=== PATIENT | male | born 1940 | race Caucasian/White ===

== ENCOUNTER 2017-03-01 18:50 | Emergency (ER) | payer MEDICARE ==
[~2017-03-01] VITALS: Ht 180.3 cm; Wt 111.4 kg
[~2017-03-01 18:50] MED LIST: CIALIS2.5 MG PO; COLESTID 1GM1 G PO; CORDARONE200 MG/TAB PO; COREG 25MG25 MG/TAB PO; DIABETA 5MG5 MG/TAB PO; ELIQUIS 5MG PO; FISH OIL 1000MG1 CAP PO; HCTZ 25MG TAB25 MG PO; KLOR-CON 1010 MEQ PO; LANOXIN 0.25M0.25 MG PO; LASIX 20MG TABL20 MG PO; LOPID 600M600 MG/TAB PO; MULTIPLE VITAMI1 CAP PO; NIACIN500 M4 PO; NORCO 325 MG-51 TAB PO; NORVASC 10MG10 MG PO; NORVASC 5MG5 MG/TAB PO; PACERONE400 MG PO; PHARMASSURE SA160 MG PO; PROSCAR 5MG5 MG PO; TENORMIN 5050 MG/TAB PO; TIMOLOL MALEATE5 M1 OU; TRAVATAN Z 5 ML5 ML OU; TYLENOL 325MG325 MG PO; VIAGRA100 M1 PO; VITAMIN B50 B-C1 TAB PO; ZESTRIL 20MG TA20 MG PO; ZESTRIL40 MG PO; ZITHROMAX 250M250 MG PO
[2017-03-01 18:52] VITALS: TEMP 98.1
[2017-03-01 19:26] LABS: BASO % 0.5 % (0.0-2.0); EOS # 0.2 (0.0-0.7); EOS % 2.8 % (0-4.0); GRAN % 51.1 % (42.2-75.2); HEMATOCRIT 44.3 % (42.0-52.0); HEMOGLOBIN 14.7 g/dl (13.5-18.0); LYMPH % 34.8 % (20.0-51.0); MEAN CELL VOLUME 97 fl (80.0-100.0); MEAN CORPUSCULAR HEMOGLOBIN 32 pg (27.0-31.0); MEAN CORPUSCULAR HGB CONC 33 g/dl (33.0-37.0); MEAN PLATELET VOLUME 10.3 fl (7.4-10.4); MONO # 0.6 (0.1-0.6); MONO % 10.5 % (1.7-9.3); PLATELET COUNT 208 K/mm3 (130-400); RED BLOOD COUNT 4.59 M/mm3 (4.20-5.60); REDCELL DISTRIBUTION WIDTH-CV 13.3 % (11.5-14.5); WHITE BLOOD COUNT 5.8 K/mm3 (4.8-10.8)
[2017-03-01 19:35] LABS: ADJUSTED CALCIUM 9.5 mg/dL (8.4-10.2); ALANINE AMINOTRANSFERASE 22 U/L (21-72); ALBUMIN 4.4 gm/dL (3.5-5.0); ALKALINE PHOSPHATASE 89 U/L (50-136); ANION GAP 12 mmol/L (7-16); BILIRUBIN,TOTAL 0.6 mg/dL (0.0-1.0); BLOOD UREA NITROGEN 22 mg/dL (9-20); CALCIUM 9.8 mg/dL (8.4-10.2); CARBON DIOXIDE 29 mmol/L (22-30); CHLORIDE 103 mmol/L (98-107); CREATININE, serum 1.03 mg/dL (0.66-1.25); GLUCOSE 126 mg/dL (74-106); POTASSIUM 3.9 mmol/L (3.4-5.0); SODIUM 144 mmol/L (137-145); TOTAL PROTEIN 7.3 gm/dL (6.4-8.2)
[2017-03-01 20:13] LABS: TROPONIN-I < 0.012 ng/mL (0.000-0.034)
[2017-03-01 20:26] VITALS: BP 170/100; PULSE 70
== END 2017-03-01 20:27 | disposition home or self-care (01) ==
LOC: COL.ER 18:50
PROVIDERS: Emergency Medicine
DX: Z45.018 Encounter for adjustment and management of other part of cardiac pacemaker (principal); I48.91 Unspecified atrial fibrillation; I10 Essential (primary) hypertension; Z87.891 Personal history of nicotine dependence; Z79.01 Long term (current) use of anticoagulants

== ENCOUNTER 2018-12-17 16:10 | Inpatient (IN) | payer MEDICARE ==
[~2018-12-17] VITALS: Ht 180.3 cm; Wt 113.6 kg
[2018-12-17] MEDS ORDERED: NORVASC 10MG10 MG PO (16:38)
[2018-12-17 16:46] LABS: BASO # 0.1 (0.0-0.2); BASO % 0.3 % (0.0-2.0); EOS # 0.1 (0.0-0.7); EOS % 0.6 % (0-4.0); GRAN % 74.6 % (42.2-75.2); HEMATOCRIT 40.1 % (42.0-52.0); HEMOGLOBIN 13.4 g/dl (13.5-18.0); LYMPH # 2.4 (1.2-3.4); LYMPH % 13.9 % (20.0-51.0); MEAN CELL VOLUME 96 fl (80.0-100.0); MEAN CORPUSCULAR HEMOGLOBIN 32 pg (27.0-31.0); MEAN CORPUSCULAR HGB CONC 33 g/dl (33.0-37.0); MEAN PLATELET VOLUME 10.3 fl (7.4-10.4); MONO # 1.6 (0.1-0.6); MONO % 8.9 % (1.7-9.3); PLATELET COUNT 169 K/mm3 (130-400); RED BLOOD COUNT 4.19 M/mm3 (4.20-5.60); REDCELL DISTRIBUTION WIDTH-CV 14.6 % (11.5-14.5)
[2018-12-17 16:57] LABS: ALANINE AMINOTRANSFERASE 29 U/L (21-72); ALBUMIN 3.9 gm/dL (3.5-5.0); ALKALINE PHOSPHATASE 105 U/L (50-136); ANION GAP 10 mmol/L (7-16); AST,SGOT 34 U/L (15-37); BILIRUBIN,TOTAL 0.5 mg/dL (0.0-1.0); BLOOD UREA NITROGEN 17 mg/dL (9-20); CALCIUM 9.5 mg/dL (8.4-10.2); CARBON DIOXIDE 26 mmol/L (22-30); CHLORIDE 100 mmol/L (98-107); CREATININE, serum 0.66 mg/dL (0.66-1.25); GLUCOSE 106 mg/dL (74-106); POTASSIUM 4.2 mmol/L (3.4-5.0); SODIUM 135 mmol/L (137-145); TOTAL PROTEIN 7.5 gm/dL (6.4-8.2)
[2018-12-17 17:07] LABS: TROPONIN-I < 0.012 ng/mL (0.000-0.035)
[2018-12-17] MEDS ORDERED: FLOMAX 0.40.4 MG/CAP PO (17:31)
[2018-12-17 17:41] LABS: COLLECTION METHOD CLEAN CATCH
[2018-12-17 18:08] LABS: MUCOUS Present /lpf; PH 5 (5-8); URINE APPEARANCE Hazy; URINE BACTERIA None Seen /hpf; URINE BILIRUBIN Negative (NEGATIVE); URINE BLOOD Negative (NEGATIVE); URINE COLOR Yellow; URINE GLUCOSE Negative (NEGATIVE); URINE KETONE Negative (NEGATIVE); URINE LEUKOCYTE ESTERASE 2+ (NEGATIVE); URINE NITRATE Negative (NEGATIVE); URINE PROTEIN(semi-quant) 2+ (NEGATIVE); URINE RBC 20-50 /hpf; URINE UROBILINOGEN Negative (NEGATIVE)
[2018-12-17] MEDS ORDERED: CORDARONE200 MG/TAB PO (19:49)
[2018-12-17] MEDS ORDERED: PRINIVIL40 MG PO (19:52)
[2018-12-17] MEDS ORDERED: BACTRIM 400 MG-1 TAB PO (19:53)
[2018-12-17] MEDS ORDERED: LASIX 20MG TABL20 MG PO (19:58)
[2018-12-17 20:14] LABS: INR 1.7 (0.8-3.0); PROTHROMBIN TIME 19.2 SECONDS (9.7-12.8)
[2018-12-17 20:28] VITALS: BP 148/81; PULSE 77; TEMP 98.3
--- NOTE | 2018-12-17 22:00 | NUR ---
Admitted from ER with SOB, weakness. VSS, pt with productive cough, white sputum- will collect a sputum as ordered and urine specimens as ordered- on droplet precautions for Resp virus panel pending- o2 sats 94 % on RA-- sitting up in chair, states he feels better sitting up
[2018-12-18 00:04] VITALS: BP 137/70; PULSE 71; TEMP 99
[2018-12-18 03:09] VITALS: BP 122/66; PULSE 74; TEMP 99.2
--- NOTE | 2018-12-18 05:55 | NUR ---
No requests- states is feeling a little better this morning,,no stools throughout the night. Sitting up in recliner to sleep.
[2018-12-18 05:59] LABS: HEMOGLOBIN 12.2 g/dl (13.5-18.0); MEAN CELL VOLUME 96 fl (80.0-100.0); MEAN CORPUSCULAR HEMOGLOBIN 32 pg (27.0-31.0); MEAN CORPUSCULAR HGB CONC 33 g/dl (33.0-37.0); MEAN PLATELET VOLUME 10.1 fl (7.4-10.4); PLATELET COUNT 142 K/mm3 (130-400); RED BLOOD COUNT 3.83 M/mm3 (4.20-5.60); REDCELL DISTRIBUTION WIDTH-CV 14.6 % (11.5-14.5)
[2018-12-18 06:03] LABS: HEMATOCRIT 36.7 % (42.0-52.0)
[2018-12-18 06:15] LABS: ALBUMIN 3.3 gm/dL (3.5-5.0); BILIRUBIN,TOTAL 0.4 mg/dL (0.0-1.0); CALCIUM 8.8 mg/dL (8.4-10.2); CREATININE, serum 0.61 mg/dL (0.66-1.25); POTASSIUM 3.9 mmol/L (3.4-5.0); TOTAL PROTEIN 6.6 gm/dL (6.4-8.2)
[2018-12-18 06:16] LABS: BAND 8 % (0-10); EOSINOPHIL 3 % (0-4); LYMPHOCYTE 35 % (20.0-51.0); NEUTROPHILS 43 % (42.0-75.2); NUCLEATED RED BLOOD CELL 1 (0-6)
[2018-12-18 06:17] LABS: PLATELET ESTIMATE DECREASED (NORMAL)
[2018-12-18 07:32] VITALS: BP 141/75; PULSE 74; TEMP 98.7
--- NOTE | 2018-12-18 09:59 | NUR ---
BRIGETTE and BRIGETTE student met with the patient and patient's life partner, Carlos, to discuss discharge plan. The patient lives in [place] with his life partner. He reports independence with ADLs and does not use any DME. The patient goes to the outpatient clinic on [address], but was interested in being set up with a PCP is [place]. BRIGETTE discussed the [facility]. The patient stated he would like to be set up with Dr. Jonathan Monahan. BRIGETTE informed the patient's nurse practitioner. The patient receives his medications at the NH in [place]. He reports no difficulties obtaining his meds. The patient does not have advanced directives in EMR, but he states that he does have them completed. The patient plans to return home with his life partner upon discharge. No additional needs at this time.
[2018-12-18 10:51] VITALS: BP 115/65; PULSE 73; TEMP 99
--- NOTE | 2018-12-18 11:00 | NUR ---
Pt coughing alot this am with minimal white sputum produced. Pt alert and oriented and given PRN Tylenol for headache from coughing. Pt has spouse at bedside. Pt independent in the room and has call light in reach. Pt denies SOB and cardiology consulted this am.
[2018-12-18 16:04] VITALS: BP 124/64; PULSE 49; TEMP 97.7
[2018-12-18 19:14] VITALS: BP 114/66; PULSE 72; TEMP 98.2
--- NOTE | 2018-12-18 19:40 | NUR ---
Pt resting in bed with at bedside. Pt alert and oriented and rates pain in head from coughing at 1/10. Pt has Nitro paste on right chest. Pt independent in room and denies SOB at rest. Pt given diuretics today to manage CHF. Pt has call light in reach and denies needs. Pt appetite has been improved this am.
--- NOTE | 2018-12-18 21:59 | NUR ---
Completed assessment and medication administration with PT; Tolerated well without complaints. PT A&Ox3, BS active x4, IND AMB within room; PT has complaints of mild headache, administered PRN Tylenol 650mg as ordered with effective results verbalized; PT denied further needs at time of exit; call light placed within reach; Will continue to monitor. CDA
[2018-12-19 00:59] VITALS: BP 129/54; PULSE 76; TEMP 98.3
--- NOTE | 2018-12-19 01:51 | NUR ---
PT tolerating ABX and RT treatments well; No further complaints of pain or discomfort; PT able to verbally communicate concerns; Pending further medication and ABX therapy. No acute discomfort, pain, or concerns at time of exit; call light placed within reach; will continue to monitor; CDA
[2018-12-19 05:00] VITALS: BP 133/56; PULSE 56; TEMP 98.6
--- NOTE | 2018-12-19 07:10 | NUR ---
No significant changes; Report given to MIRTHA Alba. CDA
[2018-12-19 07:53] LABS: BASO % 0.3 % (0.0-2.0); EOS # 0.3 (0.0-0.7); GRAN # 9.5 (1.4-6.5); GRAN % 71.2 % (42.2-75.2); HEMATOCRIT 39.3 % (42.0-52.0); HEMOGLOBIN 13.3 g/dl (13.5-18.0); LYMPH # 2.1 (1.2-3.4); LYMPH % 15.6 % (20.0-51.0); MEAN CELL VOLUME 94 fl (80.0-100.0); MEAN CORPUSCULAR HEMOGLOBIN 32 pg (27.0-31.0); MEAN CORPUSCULAR HGB CONC 34 g/dl (33.0-37.0); MEAN PLATELET VOLUME 10.3 fl (7.4-10.4); MONO # 1.3 (0.1-0.6); MONO % 9.6 % (1.7-9.3); PLATELET COUNT 175 K/mm3 (130-400); RED BLOOD COUNT 4.18 M/mm3 (4.20-5.60); REDCELL DISTRIBUTION WIDTH-CV 14.1 % (11.5-14.5)
[2018-12-19 08:02] LABS: ALBUMIN 3.6 gm/dL (3.5-5.0); BILIRUBIN,TOTAL 0.5 mg/dL (0.0-1.0); CALCIUM 9.2 mg/dL (8.4-10.2); CREATININE, serum 0.86 mg/dL (0.66-1.25); POTASSIUM 3.9 mmol/L (3.4-5.0); TOTAL PROTEIN 7.2 gm/dL (6.4-8.2)
[2018-12-19 08:21] VITALS: BP 120/44; PULSE 76; TEMP 98.3
--- NOTE | 2018-12-19 09:28 | NUR ---
Pt assessment complete. Pt is sitting on side of bed, he is A/O x3. His breathing is currently even and unlabored on RA. Occasional productive cough present. Pt reports his breathing has improved, SOB improved. He currently reports a headache, PRN Tylenol administered. Pt reports having no diarrhea, no stools today. Denies further needs, call light within reach.
[2018-12-19 11:32] VITALS: BP 102/53; PULSE 44; TEMP 98.2
[2018-12-19 16:00] VITALS: BP 95/56; PULSE 70; TEMP 98.2
--- NOTE | 2018-12-19 18:41 | NUR ---
Pt urinated 90cc pt bladder scanned, 327ml in bladder. Jenny notified, order to place ascencio if ok with patient. Pt had some low bp, symptomatic. New orders placed. Pt aware of POC. Denies needs at this time. Call light within reach.
[2018-12-19 19:20] VITALS: BP 137/60; PULSE 42; TEMP 98
--- NOTE | 2018-12-19 20:09 | NUR ---
Pt sitting in recliner watching TV, family in room with Pt, very talkative and answers appropriately. Shift assessments complete, left Pt questions answered, call light in reach, bed in lowest position.
[2018-12-20] VITALS (7 sets, daily range): BP systolic 109–144; BP diastolic 58–81; PULSE 42–77; TEMP 97.5–98.5
--- NOTE | 2018-12-20 05:17 | NUR ---
Pt slept some of the night, family stayed in room with Pt all night, he has not had C/O pain during the shift, Denson was attempted and was not able to get it inserted.
[2018-12-20 08:46] LABS: BASO % 0.2 % (0.0-2.0); EOS # 0.3 (0.0-0.7); GRAN # 9.3 (1.4-6.5); GRAN % 69.3 % (42.2-75.2); HEMATOCRIT 37.5 % (42.0-52.0); HEMOGLOBIN 12.8 g/dl (13.5-18.0); LYMPH # 2.3 (1.2-3.4); MEAN CELL VOLUME 94 fl (80.0-100.0); MEAN CORPUSCULAR HEMOGLOBIN 32 pg (27.0-31.0); MEAN CORPUSCULAR HGB CONC 34 g/dl (33.0-37.0); MEAN PLATELET VOLUME 10.3 fl (7.4-10.4); MONO # 1.4 (0.1-0.6); MONO % 10.2 % (1.7-9.3); PLATELET COUNT 207 K/mm3 (130-400); RED BLOOD COUNT 3.99 M/mm3 (4.20-5.60); REDCELL DISTRIBUTION WIDTH-CV 14.1 % (11.5-14.5)
[2018-12-20 08:59] LABS: ALBUMIN 3.5 gm/dL (3.5-5.0); BILIRUBIN,TOTAL 0.5 mg/dL (0.0-1.0); CALCIUM 9.3 mg/dL (8.4-10.2); CREATININE, serum 0.83 mg/dL (0.66-1.25); MAGNESIUM 1.9 mg/dL (1.6-2.3); POTASSIUM 3.8 mmol/L (3.4-5.0); TOTAL PROTEIN 6.9 gm/dL (6.4-8.2)
--- NOTE | 2018-12-20 09:26 | NUR ---
Pt assessment complete. Pt sitting up on the side of the bed, he is A/O x3. His breathing is even and unlabored on RA. Pt denies SOB at rest and with exertion, reports continued phlegm build up. Pt denies pain at this time. No N/V. Pt asking about WBC, information provided. POC discussed with patient who verbalizes understanding. Frequent reminders given to patient to use urinal or urinate in hat for accurate I&O's. Pt denies further needs. Call light within reach.
--- NOTE | 2018-12-20 18:32 | NUR ---
Pt had uneventful day. He denied any needs or concerns. Breathing improved. Good output today. VSS. Pt eating dinner with at this time. Call light within reach.
--- NOTE | 2018-12-20 20:16 | NUR ---
Pt sitting up watching TV, family in room with Pt, no C/O pain currently, shift assessments complete, left Pt call light in reach.
[2018-12-21 04:15] VITALS: BP 133/66; PULSE 79; TEMP 97.6
--- NOTE | 2018-12-21 05:09 | NUR ---
Pt has been up and down during the night, he has not slept well. Pt has no C/O pain during the shift. VS have remained stable with the exception of his pulse rate dropping at times to mid to low 40s.
[2018-12-21 06:01] LABS: BASO % 0.4 % (0.0-2.0); EOS # 0.3 (0.0-0.7); EOS % 2.8 % (0-4.0); GRAN # 7.1 (1.4-6.5); GRAN % 62.3 % (42.2-75.2); HEMOGLOBIN 12.8 g/dl (13.5-18.0); LYMPH # 2.5 (1.2-3.4); LYMPH % 21.8 % (20.0-51.0); MEAN CELL VOLUME 94 fl (80.0-100.0); MEAN CORPUSCULAR HEMOGLOBIN 32 pg (27.0-31.0); MEAN CORPUSCULAR HGB CONC 34 g/dl (33.0-37.0); MEAN PLATELET VOLUME 10.2 fl (7.4-10.4); MONO # 1.3 (0.1-0.6); MONO % 11.6 % (1.7-9.3); PLATELET COUNT 243 K/mm3 (130-400); RED BLOOD COUNT 4.03 M/mm3 (4.20-5.60)
[2018-12-21 06:25] LABS: CALCIUM 9.1 mg/dL (8.4-10.2); CREATININE, serum 0.82 mg/dL (0.66-1.25); MAGNESIUM 1.8 mg/dL (1.6-2.3); POTASSIUM 3.5 mmol/L (3.4-5.0)
[2018-12-21 07:13] VITALS: BP 131/78; PULSE 58; TEMP 98
--- NOTE | 2018-12-21 10:53 | NUR ---
Initial visit; Patient and his thanked Custom Car Builder for looking in on him and offering God's blessings.
[2018-12-21 11:09] VITALS: BP 115/60; PULSE 58; TEMP 98.2
--- NOTE | 2018-12-21 12:02 | NUR ---
Pt alert and oriented this am. Pt denies pain now but states occassional headache with coughing. Pt has been coughing up moderate amount white sputum. Pt denies SOB. Pt spouse at bedside. Pt bilateral lower extremities have edema noted. Pt voiding independently and keeping track of output. Pt continues on fluid restriction. Pt would like to go home today. Pt has call light in reach and denies needs.
[2018-12-21 16:02] VITALS: BP 133/59; PULSE 45; TEMP 97.9
--- NOTE | 2018-12-21 17:51 | NUR ---
Pt alert and stable this shift. Pt continues on IV abx as ordered. Pt denies pain at this time. Pt up to chair eating supper now. BS WNL no insulin required. Pt spouse at bedside. Pt denies SOB at rest. Pt has call light in reach and denies further needs.
[2018-12-21 19:35] VITALS: BP 114/54; PULSE 54; TEMP 98
--- NOTE | 2018-12-21 19:42 | NUR ---
Pt resting in bed, spouse in room, Pt in good spirits and talkative, shift assessments complete, left Pt call light in reach, bed in lowest position.
[2018-12-21 23:43] VITALS: BP 125/50; PULSE 52; TEMP 98.3
[2018-12-22 03:02] VITALS: BP 117/56; PULSE 68; TEMP 99
--- NOTE | 2018-12-22 05:01 | NUR ---
Pt slept well during the night, no C/O pain, Pt has been NPO since midnight foer a possible ARIADNA in the AM, VS have remained stable during the shift.
[2018-12-22 06:08] LABS: BASO % 0.3 % (0.0-2.0); EOS # 0.3 (0.0-0.7); GRAN # 8.6 (1.4-6.5); GRAN % 66.7 % (42.2-75.2); HEMATOCRIT 41.1 % (42.0-52.0); HEMOGLOBIN 13.5 g/dl (13.5-18.0); LYMPH # 2.4 (1.2-3.4); LYMPH % 18.8 % (20.0-51.0); MEAN CELL VOLUME 96 fl (80.0-100.0); MEAN CORPUSCULAR HEMOGLOBIN 32 pg (27.0-31.0); MEAN CORPUSCULAR HGB CONC 33 g/dl (33.0-37.0); MEAN PLATELET VOLUME 10.2 fl (7.4-10.4); MONO # 1.4 (0.1-0.6); MONO % 11.2 % (1.7-9.3); PLATELET COUNT 293 K/mm3 (130-400); RED BLOOD COUNT 4.28 M/mm3 (4.20-5.60); REDCELL DISTRIBUTION WIDTH-CV 14.3 % (11.5-14.5)
[2018-12-22 06:17] LABS: CALCIUM 9.5 mg/dL (8.4-10.2); CREATININE, serum 0.93 mg/dL (0.66-1.25); POTASSIUM 3.4 mmol/L (3.4-5.0)
[2018-12-22 07:57] VITALS: BP 117/52; PULSE 74; TEMP 98.8
--- NOTE | 2018-12-22 09:11 | NUR ---
Pt alert and oriented. Pt slept well last NOC with sleep med given per pt. Pt up in chair at bedside. Pt NPO for possible ARIADNA today. Pt BLE edema noted. Pt denies SOB at rest. Pt rates pain 2/10 d/t headache from coughing. Pt IV in left hand patent and no redness or infiltration noted. Pt has call light in reach. Pt am assessment completed and edu given. Pt denies further needs and at bedside. Spouse has to work today and leave by 1300. Spouse cannot milk pickup truck driver pt until 1800 if DC'd today.
[2018-12-22 11:13] VITALS: BP 103/51; PULSE 76; TEMP 99
--- NOTE | 2018-12-22 14:45 | NUR ---
Pt alert and oriented and stable this afternoon. Pt denies pain. Pt continues IV abx. Pt has been able to get some sleep this afternoon. Pt independent in room. Pt denies dizziness or SOB at rest. Pt has call light in reach and denies further needs.
[2018-12-22 15:43] VITALS: BP 108/73; PULSE 72; TEMP 98.1
[2018-12-22 19:21] VITALS: BP 121/74; PULSE 77; TEMP 98.4
--- NOTE | 2018-12-22 22:28 | NUR ---
Completed assessment and medication administration; PT tolerated all well without complaint; PT able to verbalize all well; PT denied pain or discomfort at time of assessment; 20G Lt hand IV in place; PT continues to be a daily wt, ACHS with SS insulin, and IND in room; ABX continues q4h as ordered. LCTA throughout with diminished bilateral bases. PT scheduled for potential D/C on 12/23/18; PT denies further needs at time of exit; call light placed within reach; Will continue to monitor. CDA
[2018-12-22 23:35] VITALS: BP 117/60; PULSE 69; TEMP 99
--- NOTE | 2018-12-23 01:50 | NUR ---
PT REFUSED TX AT THIS TIME
[2018-12-23 03:12] VITALS: BP 118/41; PULSE 61; TEMP 98.6
--- NOTE | 2018-12-23 04:15 | NUR ---
PT tolerating q4h IV ABX therapy and all medications as ordered without complaints; PT able to AMB to toilet, in room, and short distances throughout room; Continues Tele, pending daily weight; Lt hand INT flushing well; PT pending D/C home today 12/23/18; PT denied further needs at time of exit; Call light placed within reach; PT placed in a comfortable position in bed; Will continue to monitor. CDA
[2018-12-23 06:29] LABS: HEMATOCRIT 39.6 % (42.0-52.0); HEMOGLOBIN 13.1 g/dl (13.5-18.0); MEAN CELL VOLUME 97 fl (80.0-100.0); MEAN CORPUSCULAR HEMOGLOBIN 32 pg (27.0-31.0); MEAN CORPUSCULAR HGB CONC 33 g/dl (33.0-37.0); MEAN PLATELET VOLUME 10.3 fl (7.4-10.4); PLATELET COUNT 333 K/mm3 (130-400); RED BLOOD COUNT 4.09 M/mm3 (4.20-5.60); REDCELL DISTRIBUTION WIDTH-CV 14.3 % (11.5-14.5)
[2018-12-23 06:46] LABS: CALCIUM 9.2 mg/dL (8.4-10.2); CREATININE, serum 0.98 mg/dL (0.66-1.25); MAGNESIUM 1.8 mg/dL (1.6-2.3); POTASSIUM 3.2 mmol/L (3.4-5.0)
[2018-12-23 06:52] LABS: EOSINOPHIL 2 % (0-4); LYMPHOCYTE 23 % (20.0-51.0); NEUTROPHILS 70 % (42.0-75.2)
[2018-12-23 06:53] LABS: PLATELET ESTIMATE NORMAL (NORMAL)
--- NOTE | 2018-12-23 06:58 | NUR ---
Report given to MIRTHA Pineda. CDA
[2018-12-23 07:35] VITALS: BP 100/61; BP 106/67; PULSE 66; PULSE 80; TEMP 97.2; TEMP 98.2
--- NOTE | 2018-12-23 09:28 | NUR ---
The patient is to discharge back home with his today, 12/23. BRIGETTE presented and explained the IM form to the patient and patient's . The patient verbalized understanding, signed, and he was provided a copy. The patient was interested in being set up with Dr. Monahan at the [facility]. BRIGETTE informed the loading unit operator. No additional needs at this time.
[2018-12-23] MEDS ORDERED: AMOXICILLIN 50500 MG PO (10:09)
[2018-12-23] MEDS ORDERED: COREG 6.256.25 MG/TA PO (10:10)
[2018-12-23] MEDS ORDERED: LASIX 20MG TABL20 MG PO (10:20)
== END 2018-12-23 12:20 | disposition home or self-care (01) | DRG 871 ==
LOC: COL.ER 16:10 → MEDICAL 18:15
PROVIDERS: Emergency Medicine; Nurse Practitioner Family; Physician Assistant; ADMIT Internal Medicine
DX: A41.81 Sepsis due to Enterococcus (principal); I50.23 Acute on chronic systolic (congestive) heart failure; N39.0 Urinary tract infection, site not specified; N17.9 Acute kidney failure, unspecified; I42.0 Dilated cardiomyopathy; B95.2 Enterococcus as the cause of diseases classified elsewhere; I48.0 Paroxysmal atrial fibrillation; I11.0 Hypertensive heart disease with heart failure; E78.5 Hyperlipidemia, unspecified; Z95.810 Presence of automatic (implantable) cardiac defibrillator; E11.9 Type 2 diabetes mellitus without complications; Z87.891 Personal history of nicotine dependence; Z79.01 Long term (current) use of anticoagulants
CPT/HCPCS: 99222-AI; 99232-AI; 99239; A4216; J0290; J0692; J0696; J1815; J1940; J3370; J7030; J7040; J7050

== ENCOUNTER 2019-01-09 07:12 | Inpatient (IN) | payer MEDICARE ==
[~2019-01-09] VITALS: Ht 180.3 cm; Wt 114.6 kg
[~2019-01-09 07:12] MED LIST changes: +AMOXICILLIN 50500 MG PO; +BACTRIM 400 MG-1 TAB PO; +COREG 6.256.25 MG/TA PO; +FLOMAX 0.40.4 MG/CAP PO; +PRINIVIL40 MG PO
[2019-01-09 07:47] LABS: BASO % 0.2 % (0.0-2.0); EOS # 0.2 (0.0-0.7); EOS % 1.3 % (0-4.0); GRAN # 11.4 (1.4-6.5); GRAN % 89.6 % (42.2-75.2); HEMATOCRIT 42.9 % (42.0-52.0); HEMOGLOBIN 13.9 g/dl (13.5-18.0); LYMPH # 0.7 (1.2-3.4); LYMPH % 5.5 % (20.0-51.0); MEAN CELL VOLUME 97 fl (80.0-100.0); MEAN CORPUSCULAR HEMOGLOBIN 32 pg (27.0-31.0); MEAN CORPUSCULAR HGB CONC 32 g/dl (33.0-37.0); MEAN PLATELET VOLUME 10.4 fl (7.4-10.4); MONO # 0.4 (0.1-0.6); MONO % 3.1 % (1.7-9.3); PLATELET COUNT 184 K/mm3 (130-400); RED BLOOD COUNT 4.41 M/mm3 (4.20-5.60); REDCELL DISTRIBUTION WIDTH-CV 13.4 % (11.5-14.5)
[2019-01-09 07:55] LABS: INR 1.2 (0.8-3.0)
[2019-01-09 07:57] LABS: BILIRUBIN,TOTAL 0.4 mg/dL (0.0-1.0); CALCIUM 9.4 mg/dL (8.4-10.2); CREATININE, serum 0.79 mg/dL (0.66-1.25); POTASSIUM 4.4 mmol/L (3.4-5.0); TOTAL PROTEIN 7.5 gm/dL (6.4-8.2)
[2019-01-09] MEDS ORDERED: ELIQUIS 5MG PO (07:57)
[2019-01-09] MEDS ORDERED: COREG 6.256.25 MG/TA PO (07:58)
[2019-01-09] MEDS ORDERED: FLOMAX 0.40.4 MG/CAP PO (07:59)
[2019-01-09] MEDS ORDERED: LASIX 20MG TABL20 MG PO (08:00)
[2019-01-09 08:08] LABS: TROPONIN-I 0.016 ng/mL (0.000-0.035)
[2019-01-09 08:18] LABS: COLLECTION METHOD CLEAN CATCH
[2019-01-09 08:27] LABS: MUCOUS Present /lpf; PH 6 (5-8); SQUAMOUS EPITHELIAL 0-2 /hpf; URINE APPEARANCE Hazy; URINE BACTERIA Rare /hpf; URINE BILIRUBIN Negative (NEGATIVE); URINE BLOOD Negative (NEGATIVE); URINE COLOR Yellow; URINE GLUCOSE Negative (NEGATIVE); URINE KETONE Negative (NEGATIVE); URINE LEUKOCYTE ESTERASE 1+ (NEGATIVE); URINE NITRATE Negative (NEGATIVE); URINE PROTEIN(semi-quant) 2+ (NEGATIVE); URINE UROBILINOGEN Negative (NEGATIVE); URINE WBC >50 /hpf
[2019-01-09 09:29] LABS: TSH w REFLEX 0.015 uIU/mL (0.465-4.680)
[2019-01-09 11:25] VITALS: BP 116/57; PULSE 95; TEMP 99.3
[2019-01-09 11:26] VITALS: BP 117/65; PULSE 95; TEMP 99.3
--- NOTE | 2019-01-09 12:00 | NUR ---
Admission completed, alert/oriented, vital signs stable/ still has low grade temp, denies pain or discomfort and states he already feels better sence showing up to the ED, heart RRR/ hx of A.fib, distal pulses are palpalbe, lungs CTA/ diminished in lower lobes, O2 sats WNL on room air, WBC elevated and patient was started on Vanoc and Rocephin in ED, Blood cx drawn and pending, I have notified of his arrival to the surgical floor, present, denies other needs at this time
[2019-01-09 14:53] VITALS: BP 112/52; PULSE 88; TEMP 98.5
--- NOTE | 2019-01-09 19:01 | NUR ---
REPORT GIVEN TO MINERVA FOUNTAIN.
[2019-01-09 19:18] VITALS: BP 126/52; PULSE 80; TEMP 99.4
--- NOTE | 2019-01-09 20:00 | NUR ---
Patient resting in bed at this time, at bedside. Patient is alert and oriented, answers questions appropriately. Telemetry in place per order. VS WNL. Patient denies pain or nausea at this time, does c/o being cold. Brought additional blankets. Patient denies further needs at this time, call light wihtin reach.
[2019-01-09 23:26] VITALS: BP 116/63; PULSE 88; TEMP 98
[2019-01-10 03:20] VITALS: BP 110/60; PULSE 75; TEMP 98.9
[2019-01-10 07:35] VITALS: BP 114/62; PULSE 86; TEMP 98.4
--- NOTE | 2019-01-10 08:00 | NUR ---
PATIENT IS DROWSY AND RESTING IN BED THIS MORNING. PATIENT AROUSES EASILY TO NAME. PATIENT IS A&O. IRREGULAR HEART RHYTHM WITH REGULAR RATE NOTED, OTEHRWISE VSS. TELE IN PLACE. O2 AT 2L VIA NASAL CANNULA. BOWEL SOUNDS ACTIVE ALL FOUR QUADRANTS. PATIENT TOLERATING FOOD & LIQUIDS WITHOUT ANY COMPLAINTS OF N/V. POSITIVE PEDAL PULSES EQUAL BILATERALLY. 1+ PITTING-EDEMA TO BLE AND 2+ PITTING-EDEMA TO FEET BILATERALLY. RIGHT AC TO INT. BREAKFAST TRAY EATEN. CALL LIGHT WITHIN REACH. PATIENT DENIES ANY NEEDS AT THIS TIME.
[2019-01-10 08:09] LABS: BASO # 0.1 (0.0-0.2); BASO % 0.3 % (0.0-2.0); EOS # 0.1 (0.0-0.7); EOS % 0.7 % (0-4.0); GRAN # 15.7 (1.4-6.5); HEMATOCRIT 37.5 % (42.0-52.0); LYMPH # 1.4 (1.2-3.4); LYMPH % 7.6 % (20.0-51.0); MEAN CELL VOLUME 99 fl (80.0-100.0); MEAN CORPUSCULAR HEMOGLOBIN 32 pg (27.0-31.0); MEAN CORPUSCULAR HGB CONC 32 g/dl (33.0-37.0); MEAN PLATELET VOLUME 10.6 fl (7.4-10.4); MONO # 1.3 (0.1-0.6); MONO % 6.8 % (1.7-9.3); PLATELET COUNT 133 K/mm3 (130-400); RED BLOOD COUNT 3.78 M/mm3 (4.20-5.60); REDCELL DISTRIBUTION WIDTH-CV 13.9 % (11.5-14.5)
[2019-01-10 08:27] LABS: CALCIUM 8.8 mg/dL (8.4-10.2); CREATININE, serum 0.84 mg/dL (0.66-1.25)
--- NOTE | 2019-01-10 09:05 | NUR ---
PATIENT CALLED OUT REQUESTING MEDICATION FOR A HEADACHE. PATIENT GIVEN PRN DOSE OF ORAL TYLENOL. NO OTHER NEEDS AT THIS TIME.
--- NOTE | 2019-01-10 11:20 | NUR ---
CALLED AND NOTIFIED OF ID CONSULT FOR POSITIVE BLOOD CULTURES.
[2019-01-10 11:56] VITALS: BP 120/57; PULSE 74; TEMP 98.4
--- NOTE | 2019-01-10 13:10 | NUR ---
Patient lives at home in [place], [place] with his partner (Carlos) and plasn to return home upon discharge. Patient is moderately independent with daily living activities with assistance from Carlos as needed, he has no anticipated durable medical equipment needs at this time, his primary care physician and medical care primarly comes from the MD, his pharmacy is [facility] and he does have advance directives completed. Patient is retired from the [employer]. gate services supervisor will follow as needed.
--- NOTE | 2019-01-10 14:30 | NUR ---
PATIENT TOLERATING SMALL AMOUNTS OF FULL LIQUIDS WITHOUT COMPLAINTS OF N/V. NOTIFIED. PATIENT GIVEN THE OKAY TO DISCHARGE TO HOME PER .
--- NOTE | 2019-01-10 14:48 | NUR ---
PATIENT TAKEN TO CT VIA WHEELCHAIR BY RADIOLOGY FOR SCAN. WILL WAIT FOR RETURN TO ROOM 342.
--- NOTE | 2019-01-10 15:00 | NUR ---
PATIENT ARRIVED BACK TO ROOM [address] SCAN. PATIENT SETTELED INTO ROOM. NO NEEDS AT THIS TIME.
[2019-01-10 15:32] VITALS: BP 129/65; PULSE 81; TEMP 98.7
--- NOTE | 2019-01-10 16:01 | NUR ---
PATIENT GIVEN PRN DOSE OF ORAL TYLENOL FOR A HEADACHE RATED A 2/10 ON A 0-10 SCALE. PATIENT DENIES ANY OTHER NEEDS AT THIS TIME.
--- NOTE | 2019-01-10 18:08 | NUR ---
CALLED AND NOTIFIED OF SURGICAL CONSULT FOR CHOLEYCYSTITIS. PORB GIVEN FOR ELIQUIS HOLD FOR EVENING DOSE TONIGHT.
--- NOTE | 2019-01-10 19:03 | NUR ---
AFTERNOON UNEVENTFUL. REPORT GIVEN TO MIRTHA ZAVALA.
[2019-01-10 19:27] VITALS: BP 131/63; PULSE 79; TEMP 98.5
--- NOTE | 2019-01-10 20:16 | NUR ---
Pt resting in bed. at bedside. No distress noted. Pt denies pain. Lungs clear to auscultation. Respirations even and unlabored. BS+. 2+ pitting edema noted to BLE. Pt complaining of having to get up to use bathroom frequently due to lasix administration. Pt states he "doesn't want anymore of that Lasix". No other complaints. Will continue to monitor.
[2019-01-10 23:35] VITALS: BP 138/70; PULSE 93; TEMP 99.2
[2019-01-11 03:53] VITALS: BP 127/66; PULSE 78; TEMP 99.3
--- NOTE | 2019-01-11 05:19 | NUR ---
Pt up to sink. Just finished with self bed bath and PO care. No distress noted. Pt denies pain or needs. Pt slept throughout the night.
[2019-01-11 07:08] LABS: HEMATOCRIT 37.9 % (42.0-52.0); HEMOGLOBIN 11.9 g/dl (13.5-18.0); MEAN CELL VOLUME 99 fl (80.0-100.0); MEAN CORPUSCULAR HEMOGLOBIN 31 pg (27.0-31.0); MEAN CORPUSCULAR HGB CONC 31 g/dl (33.0-37.0); MEAN PLATELET VOLUME 11.5 fl (7.4-10.4); PLATELET COUNT 129 K/mm3 (130-400); RED BLOOD COUNT 3.84 M/mm3 (4.20-5.60); REDCELL DISTRIBUTION WIDTH-CV 13.7 % (11.5-14.5)
[2019-01-11 07:14] VITALS: BP 142/71; PULSE 77; TEMP 98
[2019-01-11 07:21] LABS: ALBUMIN 3.6 gm/dL (3.5-5.0); BILIRUBIN,TOTAL 0.3 mg/dL (0.0-1.0); CALCIUM 9.1 mg/dL (8.4-10.2); CREATININE, serum 0.68 mg/dL (0.66-1.25); TOTAL PROTEIN 7.1 gm/dL (6.4-8.2)
--- NOTE | 2019-01-11 11:14 | NUR ---
Patient alert and oriented, answers questions appropriately. See assessment. Abdomen soft, non tender, non distended. Bowel sounds hyperactive x4 quads. +Flatus. No c/o urinary frequency, burning or hesitancy. No other c/o at this time.
[2019-01-11 11:23] VITALS: BP 123/55; PULSE 51; TEMP 98.7
[2019-01-11 12:30] LABS: BAND 2 % (0-10); LYMPHOCYTE 15 % (20.0-51.0); NEUTROPHILS 76 % (42.0-75.2); PLATELET ESTIMATE DECREASED (NORMAL); TOXIC GRANULATION PRESENT
[2019-01-11 15:44] VITALS: BP 130/69; PULSE 71; TEMP 98.1
[2019-01-11 20:44] VITALS: BP 140/67; PULSE 71; TEMP 98.6
--- NOTE | 2019-01-11 21:20 | NUR ---
Patient sitting up in chair at bedside. Is alert and oriented x4. Has oxygen on at 1L/nc. Lungs diminished bilaterally. SL to right AC, connected IV antibiotic, infusing without redness or swelling. Reports voiding without burning or pain. Has bilateral lower leg swelling. Will be NPO after midnight, patient is aware.
[2019-01-12] VITALS (13 sets, daily range): BP systolic 120–161; BP diastolic 54–87; PULSE 64–84; TEMP 98–99.5
--- NOTE | 2019-01-12 00:27 | NUR ---
Received report from MIRTHA Augustin.
--- NOTE | 2019-01-12 05:54 | NUR ---
Patient has rested intermittently through the night. VSS, currently on 1 liter of supplemental O2 via nasal cannula. Tele maintained, paced rhythmn. Tylenol given last night for c/o a headache. Remains NPO for gallbladder ultrasound this morning. has been at bedside. Patient is up with standby assist with a steady gait. Denies any concerns or needs. Bed remains in a low position with call light in reach.
[2019-01-12 06:03] LABS: BASO % 0.4 % (0.0-2.0); EOS # 0.2 (0.0-0.7); EOS % 2.1 % (0-4.0); GRAN # 6.6 (1.4-6.5); HEMOGLOBIN 11.6 g/dl (13.5-18.0); LYMPH % 19.4 % (20.0-51.0); MEAN CELL VOLUME 99 fl (80.0-100.0); MEAN CORPUSCULAR HEMOGLOBIN 31 pg (27.0-31.0); MEAN CORPUSCULAR HGB CONC 32 g/dl (33.0-37.0); MEAN PLATELET VOLUME 10.9 fl (7.4-10.4); MONO # 1.3 (0.1-0.6); MONO % 12.7 % (1.7-9.3); PLATELET COUNT 108 K/mm3 (130-400); REDCELL DISTRIBUTION WIDTH-CV 13.3 % (11.5-14.5)
[2019-01-12 06:08] LABS: HEMATOCRIT 36.7 % (42.0-52.0)
[2019-01-12 06:19] LABS: CALCIUM 9.3 mg/dL (8.4-10.2); CREATININE, serum 0.67 mg/dL (0.66-1.25); POTASSIUM 3.9 mmol/L (3.4-5.0)
--- NOTE | 2019-01-12 07:30 | NUR ---
Reported on to primary nurse MIRTHA Vann. Assessment complete. VSS. Bilateral lower extremity edema +2 pitting. Abdomen round and soft. Bowel sounds hypoactive all four quadrants. PT NPO after midnight. Reports bowel movement "recently." No pain on palpation. INT in R antecubital. PT reports no pain. No redness or swelling around site. PT is pleasant and interactive. Left with bed in lowest position and call light in reach.
--- NOTE | 2019-01-12 07:42 | NUR ---
Patient sitting up at edge of bed. He is anticipating ultrasound this am. His significant other at bedside. Student nurse working with patient. Patient plesant this am. Denies pain. Will monitor.
--- NOTE | 2019-01-12 08:30 | NUR ---
Check on PT. Reports generalized pain at 11/26. Denies pain med at this time. Left resting comfortably with call light in reach.
--- NOTE | 2019-01-12 09:00 | NUR ---
Ultrasound done in room. Partner at bedside.
--- NOTE | 2019-01-12 09:23 | NUR ---
Hospitalist team rounded. Iv antibioitcs per orders. Will monitor
--- NOTE | 2019-01-12 10:31 | NUR ---
notifed of of ultrasound results. He will see patient over lunch. Will
--- NOTE | 2019-01-12 11:20 | NUR ---
Pt found sitting on side of bed. Complains of having to go to the bathroom repeatedly. Pt educated on effects of med causing frequent urination. VSS. Pt left resting comfortably. Call light in reach. Reported off to primary nurse MIRTHA Vann.
--- NOTE | 2019-01-12 13:07 | NUR ---
Dr. Poole rounded. Orders obtained. Consent obtained, patient denies questions or concerns. Iv antibioitcs per , blood cultures obtained. Patient has been up and down to the bathroom frequently, lasix working, he has also had a BM. His significant other remains attentive at bedside. He remains NPO for procedure. Denies nausea & pain. Will monitor.
--- NOTE | 2019-01-12 13:45 | NUR ---
Patient to the OR with Michel barriga. Patient dentures ^ glasses removed. His ring off. Patient voided prior to OR. Pre ops per orders & NS to gravity.
--- NOTE | 2019-01-12 15:45 | NUR ---
Called to PACU at this time to assist pt. It is suspected he will need BIPAP post-surgery. BIPAP previously setup at bedside and ready for pt. PT did not need BIPAP at this time. Monitored for approx. 15-20.
--- NOTE | 2019-01-12 19:28 | NUR ---
Pt resting with HOB elevated. at bedside. No distress noted. Pt denies pain at this time. Lap sites x4 on abdomen clean dry and intact with bandaids. Abdomen distended. BS +. SCDs in place. 1+ edema noted to BLE. Will continue to monitor.
--- NOTE | 2019-01-12 19:34 | NUR ---
Patient more oriented & in better spirits now. Immediately post op patient was disoriented & aggitated. His remains attentive at bedside. Lap site x4 bandaids intact. Vss on room air. He has tolerated liquids, no nausea. Not requiring pain meds at this time. Iv antibioitcs per orders. bedside report to roberto delong
[2019-01-13 04:45] VITALS: BP 139/79; PULSE 75; TEMP 98.7
--- NOTE | 2019-01-13 06:37 | NUR ---
Pt resting. at bedside. Pt c/o abdominal pain this AM. Abdomen distended, but pt reports passing gas. BS+. Pt slept throughout the night.
--- NOTE | 2019-01-13 07:00 | NUR ---
Reported on to primary nurse MIRTHA Bell. Checked on pt. Up in chair awaiting breakfast. INT in R antecubital. No redness or swelling. No reported pain. Tele leads in place. Call light left in reach.
[2019-01-13 07:21] LABS: BASO % 0.4 % (0.0-2.0); EOS # 0.2 (0.0-0.7); EOS % 1.5 % (0-4.0); GRAN # 6.7 (1.4-6.5); GRAN % 67.6 % (42.2-75.2); HEMATOCRIT 37.3 % (42.0-52.0); LYMPH # 1.7 (1.2-3.4); LYMPH % 16.9 % (20.0-51.0); MEAN CELL VOLUME 96 fl (80.0-100.0); MEAN CORPUSCULAR HEMOGLOBIN 31 pg (27.0-31.0); MEAN CORPUSCULAR HGB CONC 32 g/dl (33.0-37.0); MEAN PLATELET VOLUME 11.3 fl (7.4-10.4); MONO # 1.3 (0.1-0.6); MONO % 12.9 % (1.7-9.3); PLATELET COUNT 130 K/mm3 (130-400); RED BLOOD COUNT 3.88 M/mm3 (4.20-5.60); REDCELL DISTRIBUTION WIDTH-CV 13.1 % (11.5-14.5)
[2019-01-13 07:34] LABS: ALBUMIN 3.5 gm/dL (3.5-5.0); BILIRUBIN,TOTAL 0.4 mg/dL (0.0-1.0); CALCIUM 9.1 mg/dL (8.4-10.2); CREATININE, serum 0.66 mg/dL (0.66-1.25); POTASSIUM 3.7 mmol/L (3.4-5.0); TOTAL PROTEIN 6.8 gm/dL (6.4-8.2)
[2019-01-13 08:00] VITALS: BP 136/68; PULSE 64; TEMP 98.3
--- NOTE | 2019-01-13 08:48 | NUR ---
Patient resting in bed, lying on his right side. He sat up in chair & tolearted breakfast well. His supportive at bedside. His abdomen soft, he reports passing flatus. Lap site x3 bandaids intact. New Iv started by Stephanie SHANNON to Chava. Old IV DC to RAC. Iv antibioitics as ordered. Patient has student nurse working with him this am. Overall he is in good spirits. pain managed with [place] per orders. Allen romero.
--- NOTE | 2019-01-13 09:00 | NUR ---
Assessment complete. VSS. INT in L hand. No redness or swelling. Pt reports no pain at site. Tele leads in place. Lap incisions x4 on abdomen CDI. No pain or tenderness on palpation. BLE edema is +1 pitting. Pt reports pain 0/10. Pleasant and social demeanor. Pt left resting in bed. Call light in reach.
--- NOTE | 2019-01-13 10:15 | NUR ---
Check on pt. at beside. Both resting comfortably with eyes closed. Bed in lowest position. Call light in reach.
--- NOTE | 2019-01-13 10:20 | NUR ---
Initial visit; Patient thanked Master Control Supervisor for looking in on him and told her a joke. Patient and his were receptive to Master Control Supervisor offering God's blessings.
--- NOTE | 2019-01-13 10:25 | NUR ---
Patient resting in bed. up and down to the bathroom, independently. Really hoping to get home, wanting to discharge, he reports feeling great
[2019-01-13 11:00] VITALS: BP 135/77; PULSE 54; TEMP 98.5
--- NOTE | 2019-01-13 11:00 | NUR ---
VSS. Pt states no pain. In good spirits and motivated to go home. Left sitting on edge of bed. Call light in reach.
--- NOTE | 2019-01-13 11:29 | NUR ---
Reported off to primary nurse MIRTHA Bell.
--- NOTE | 2019-01-13 13:31 | NUR ---
Patient resting in bed.Hospitalst team & rounded. Plan of care reviewed. Continue with Iv antibioitcs per orders. He is tolerating diet. [place] Po manages pain well. Using the bathroom independently. His attentive at bedside.
[2019-01-13 15:40] VITALS: BP 143/84; PULSE 65; TEMP 98.8
--- NOTE | 2019-01-13 19:34 | NUR ---
Patient has done well today. Diet progressed. He denies nausea. Pain managed with with [place]. Iv antibioitcs per orders. He is hoping to get home tmrw after blood cultures finalize. Report to night nurse
[2019-01-13 19:59] VITALS: BP 150/73; PULSE 80; TEMP 99
--- NOTE | 2019-01-13 20:00 | NUR ---
PT IN BED WITH HOB AT 15 DEGREE ANGLE, BY SIDE IN RECLINER. PT ADVISES THAT THE NORCO GIVEN TO HIM EARLIER TOOK HIS PAIN AWAY AND HE IS AT A 0/10. PT HAD 4 LAP SITES, [place] SWOLLEN. PT HAS NO FURTHER NEEDS AT THIS TIME, CALL LIGHT WITHIN REACH.
[2019-01-13 23:52] VITALS: BP 138/54; PULSE 78; TEMP 99.2
--- NOTE | 2019-01-14 02:05 | NUR ---
PT has been sleeping/resting well in bed with HOB elevated to 45 degree angle. is still in room with PT. PT easily awakens and denies pain or discomfort at this time. No needs at this time, call light within reach.
[2019-01-14 03:25] VITALS: BP 144/74; PULSE 78; TEMP 98.8
[2019-01-15 08:00] VITALS: BP 147/65; PULSE 76
[2019-01-15 12:30] VITALS: BP 140/69; PULSE 72
[2019-01-15] MEDS ORDERED: AMOXICILLIN 50500 MG PO (14:16)
[2019-01-15 15:03] LABS: HEMATOCRIT 37.4 % (42.0-52.0); HEMOGLOBIN 12.2 g/dl (13.5-18.0); MEAN CELL VOLUME 95 fl (80.0-100.0); MEAN CORPUSCULAR HEMOGLOBIN 31 pg (27.0-31.0); MEAN CORPUSCULAR HGB CONC 33 g/dl (33.0-37.0); MEAN PLATELET VOLUME 10.8 fl (7.4-10.4); PLATELET COUNT 133 K/mm3 (130-400); RED BLOOD COUNT 3.92 M/mm3 (4.20-5.60)
[2019-01-15 15:05] LABS: EOSINOPHIL 3 % (0-4); LYMPHOCYTE 16 % (20.0-51.0); NEUTROPHILS 69 % (42.0-75.2); PLATELET ESTIMATE DECREASED (NORMAL)
--- NOTE | 2019-01-15 15:20 | NUR ---
Patient ready for discharge this afternoon. Hospitalist team rounded. Spoke with . Order obtained. Patient & his given all discharge teaching. We reviewed & stressed the importance of continuing & finishing antibioitc coarse-antibioitic for worm picker at [facility]. Patient given script for norco-we reviewed medication safety. Home med list discussed with last dose time given. Patient Int DC. Patient dressed. His has been attentive at bedside. Patient has spend alot of time in the bathroom, trying to have a Bm. He had prune juice and colace. Was able to have BM. Patient is aware of follow up appt. We reviewed incision care & signs & symtoms of infection. Patient and deny questions & concerns. Patient wheeled out with all belogings.
[2019-01-15 15:27] LABS: CALCIUM 8.9 mg/dL (8.4-10.2); CREATININE, serum 0.59 mg/dL (0.66-1.25); POTASSIUM 3.5 mmol/L (3.4-5.0)
[2019-01-15 20:21] LABS: CALCIUM 8.9 mg/dL (8.4-10.2); CREATININE, serum 0.59 mg/dL (0.66-1.25); POTASSIUM 3.5 mmol/L (3.4-5.0)
[2019-01-15 22:04] LABS: BASO % 0.2 % (0.0-2.0); EOS # 0.2 (0.0-0.7); GRAN # 8.7 (1.4-6.5); GRAN % 71.5 % (42.2-75.2); HEMATOCRIT 37.4 % (42.0-52.0); HEMOGLOBIN 12.2 g/dl (13.5-18.0); LYMPH # 1.5 (1.2-3.4); LYMPH % 12.2 % (20.0-51.0); MEAN CELL VOLUME 95 fl (80.0-100.0); MEAN CORPUSCULAR HEMOGLOBIN 31 pg (27.0-31.0); MEAN CORPUSCULAR HGB CONC 33 g/dl (33.0-37.0); MEAN PLATELET VOLUME 10.8 fl (7.4-10.4); MONO # 1.6 (0.1-0.6); MONO % 12.9 % (1.7-9.3); PLATELET COUNT 133 K/mm3 (130-400); RED BLOOD COUNT 3.92 M/mm3 (4.20-5.60)
== END 2019-01-15 15:20 | disposition home or self-care (01) | DRG 854 ==
LOC: COL.ER 07:12 → SURG 09:17
PROVIDERS: Emergency Medicine; Hospitalist; Nurse Practitioner Family; Physician Assistant; Surgery; ADMIT Hospitalist
PROC: 0FT44ZZ Resection of Gallbladder, Percutaneous Endoscopic Approach (ICD-10-PCS; principal; 2019-01-12 14:45)
DX: A41.81 Sepsis due to Enterococcus (principal); K80.10 Calculus of gallbladder with chronic cholecystitis without obstruction; I50.22 Chronic systolic (congestive) heart failure; I42.8 Other cardiomyopathies; E78.5 Hyperlipidemia, unspecified; I48.91 Unspecified atrial fibrillation; Z95.0 Presence of cardiac pacemaker; E11.9 Type 2 diabetes mellitus without complications; N40.0 Benign prostatic hyperplasia without lower urinary tract symptoms; R53.81 Other malaise; H40.9 Unspecified glaucoma; E05.90 Thyrotoxicosis, unspecified without thyrotoxic crisis or storm; M89.9 Disorder of bone, unspecified; I11.0 Hypertensive heart disease with heart failure; Z87.891 Personal history of nicotine dependence; Z88.8 Allergy status to other drugs, medicaments and biological substances
CPT/HCPCS: 99222-AI; 99232-AI; 99233-AI; 99239; A4216; J0290; J0696; J1650; J2405; J2765; J3010; J3370; J7030; J7040; J7050

== ENCOUNTER 2019-03-05 12:57 | Emergency (ER) | payer MEDICARE ==
[~2019-03-05] VITALS: Ht 180.3 cm; Wt 112.7 kg
[2019-03-05 13:03] VITALS: BP 143/76; TEMP 99.7
[2019-03-05 15:16] LABS: COLLECTION METHOD CLEAN CATCH
[2019-03-05 15:24] LABS: BASO % 0.3 % (0.0-2.0); EOS # 0.2 (0.0-0.7); EOS % 1.9 % (0-4.0); GRAN % 68.7 % (42.2-75.2); HEMATOCRIT 39.8 % (42.0-52.0); HEMOGLOBIN 12.9 g/dl (13.5-18.0); LYMPH % 16.7 % (20.0-51.0); MEAN CELL VOLUME 91 fl (80.0-100.0); MEAN CORPUSCULAR HEMOGLOBIN 30 pg (27.0-31.0); MEAN CORPUSCULAR HGB CONC 32 g/dl (33.0-37.0); MEAN PLATELET VOLUME 9.6 fl (7.4-10.4); MONO # 1.4 (0.1-0.6); MONO % 11.9 % (1.7-9.3); PLATELET COUNT 530 K/mm3 (130-400); RED BLOOD COUNT 4.38 M/mm3 (4.20-5.60); REDCELL DISTRIBUTION WIDTH-CV 13.4 % (11.5-14.5)
[2019-03-05 15:26] LABS: PH 6 (5-8); SQUAMOUS EPITHELIAL None Seen /hpf; URINE APPEARANCE Clear; URINE BACTERIA None Seen /hpf; URINE BILIRUBIN Negative (NEGATIVE); URINE BLOOD Negative (NEGATIVE); URINE COLOR Yellow; URINE GLUCOSE Negative (NEGATIVE); URINE KETONE Negative (NEGATIVE); URINE LEUKOCYTE ESTERASE 2+ (NEGATIVE); URINE NITRATE Negative (NEGATIVE); URINE PROTEIN(semi-quant) Negative (NEGATIVE); URINE RBC 0-2 /hpf; URINE UROBILINOGEN Negative (NEGATIVE)
[2019-03-05 15:34] LABS: BILIRUBIN,TOTAL 0.3 mg/dL (0.0-1.0); C-REACTIVE PROTEIN 6.2 mg/dL (0.0-0.9); CALCIUM 10.2 mg/dL (8.4-10.2); CREATININE, serum 0.64 (0.66-1.25); POTASSIUM 4.8 mmol/L (3.4-5.0); TOTAL PROTEIN 8.3 gm/dL (6.4-8.2)
[2019-03-05 15:54] LABS: ERYTHROCYTE SEDIMENTATION RATE > 140 mm/hr (0-30)
[2019-03-05] MEDS ORDERED: NORCO 325 MG-51 TAB PO (16:30)
[2019-03-05] MEDS ORDERED: OMNICEF 300MG300 MG PO (16:30)
[2019-03-05 17:42] VITALS: PULSE 70
== END 2019-03-05 17:17 | disposition home or self-care (01) ==
LOC: COL.ER 12:57
PROVIDERS: Emergency Medicine
DX: N39.0 Urinary tract infection, site not specified (principal); M54.5 Low back pain; I48.91 Unspecified atrial fibrillation; E11.9 Type 2 diabetes mellitus without complications; A41.9 Sepsis, unspecified organism; I10 Essential (primary) hypertension; N40.0 Benign prostatic hyperplasia without lower urinary tract symptoms; Z90.49 Acquired absence of other specified parts of digestive tract; Z95.0 Presence of cardiac pacemaker; Z79.01 Long term (current) use of anticoagulants
CPT/HCPCS: J0696

== ENCOUNTER 2019-03-06 10:30 | Emergency (ER) | payer MEDICARE ==
[~2019-03-06] VITALS: Ht 180.3 cm; Wt 114.0 kg
[~2019-03-06 10:30] MED LIST changes: +OMNICEF 300MG300 MG PO
[2019-03-06 11:00] LABS: BASO # 0.1 (0.0-0.2); BASO % 0.5 % (0.0-2.0); EOS # 0.3 (0.0-0.7); EOS % 2.3 % (0-4.0); GRAN # 7.8 (1.4-6.5); GRAN % 71.2 % (42.2-75.2); HEMATOCRIT 38.9 % (42.0-52.0); HEMOGLOBIN 12.4 g/dl (13.5-18.0); LYMPH # 1.5 (1.2-3.4); MEAN CELL VOLUME 92 fl (80.0-100.0); MEAN CORPUSCULAR HEMOGLOBIN 29 pg (27.0-31.0); MEAN CORPUSCULAR HGB CONC 32 g/dl (33.0-37.0); MEAN PLATELET VOLUME 9.7 fl (7.4-10.4); MONO # 1.3 (0.1-0.6); MONO % 11.4 % (1.7-9.3); PLATELET COUNT 514 K/mm3 (130-400); RED BLOOD COUNT 4.22 M/mm3 (4.20-5.60); REDCELL DISTRIBUTION WIDTH-CV 13.4 % (11.5-14.5)
[2019-03-06 11:16] LABS: ALANINE AMINOTRANSFERASE < 6 U/L (21-72); ALBUMIN 3.7 gm/dL (3.5-5.0); ALKALINE PHOSPHATASE 110 U/L (50-136); ANION GAP 10 mmol/L (7-16); AST,SGOT 26 U/L (15-37); BILIRUBIN,TOTAL 0.3 mg/dL (0.0-1.0); BLOOD UREA NITROGEN 16 mg/dL (9-20); CALCIUM 9.9 mg/dL (8.4-10.2); CARBON DIOXIDE 29 mmol/L (22-30); CHLORIDE 100 mmol/L (98-107); CREATININE, serum 0.68 (0.66-1.25); GLUCOSE 220 mg/dL (74-106); POTASSIUM 4.4 mmol/L (3.4-5.0); SODIUM 139 mmol/L (137-145); TOTAL PROTEIN 7.6 gm/dL (6.4-8.2)
[2019-03-06 17:30] VITALS: BP 130/71; PULSE 75; TEMP 98.1
== END 2019-03-06 17:37 | disposition short-term general hospital (02) ==
LOC: COL.ER 10:30
PROVIDERS: Family Medicine
DX: M54.5 Low back pain (principal); R78.81 Bacteremia; B95.2 Enterococcus as the cause of diseases classified elsewhere; E11.9 Type 2 diabetes mellitus without complications; I10 Essential (primary) hypertension; Z79.84 Long term (current) use of oral hypoglycemic drugs; Z95.0 Presence of cardiac pacemaker; Z86.19 Personal history of other infectious and parasitic diseases
CPT/HCPCS: J3370; J7030; J7040; Q9967

== ENCOUNTER → 2019-05-14 | Outpatient (CLI) | payer MEDICARE ==
[2019-05-14 11:31] LABS: BASO # 0.1 (0.0-0.2); BASO % 0.4 % (0.0-2.0); EOS # 0.1 (0.0-0.7); EOS % 1.1 % (0-4.0); GRAN # 9.6 (1.4-6.5); GRAN % 79.7 % (42.2-75.2); HEMATOCRIT 47.6 % (42.0-52.0); HEMOGLOBIN 15.2 g/dl (13.5-18.0); LYMPH # 1.2 (1.2-3.4); LYMPH % 9.5 % (20.0-51.0); MEAN CELL VOLUME 91 fl (80.0-100.0); MEAN CORPUSCULAR HEMOGLOBIN 29 pg (27.0-31.0); MEAN CORPUSCULAR HGB CONC 32 g/dl (33.0-37.0); MONO % 8.5 % (1.7-9.3); PLATELET COUNT 248 K/mm3 (130-400); RED BLOOD COUNT 5.23 M/mm3 (4.20-5.60); REDCELL DISTRIBUTION WIDTH-CV 14.6 % (11.5-14.5)
[2019-05-14 11:43] LABS: ALBUMIN 4.4 gm/dL (3.5-5.0); BILIRUBIN,TOTAL 0.3 mg/dL (0.0-1.0); C-REACTIVE PROTEIN 1.2 mg/dL (0.0-0.9); CALCIUM 9.6 mg/dL (8.4-10.2); CREATININE, serum 0.69 (0.66-1.25); POTASSIUM 4.8 mmol/L (3.4-5.0); TOTAL PROTEIN 8.8 gm/dL (6.4-8.2)
[2019-05-14 11:54] LABS: ERYTHROCYTE SEDIMENTATION RATE 54 mm/hr (0-30)
== END ==
LOC: COL.LAB 10:29
PROVIDERS: Nurse Practitioner
DX: B95.2 Enterococcus as the cause of diseases classified elsewhere (principal)

== ENCOUNTER 2019-05-15 15:17 | Inpatient (IN) | payer MEDICARE ==
[~2019-05-15] VITALS: Ht 180.3 cm; Wt 109.5 kg
[2019-05-15 18:00] LABS: BASO % 0.4 % (0.0-2.0); EOS # 0.1 (0.0-0.7); EOS % 1.3 % (0-4.0); HEMATOCRIT 43.6 % (42.0-52.0); HEMOGLOBIN 14.3 g/dl (13.5-18.0); LYMPH # 1.8 (1.2-3.4); LYMPH % 19.7 % (20.0-51.0); MEAN CELL VOLUME 89 fl (80.0-100.0); MEAN CORPUSCULAR HEMOGLOBIN 29 pg (27.0-31.0); MEAN CORPUSCULAR HGB CONC 33 g/dl (33.0-37.0); MONO # 1.2 (0.1-0.6); MONO % 12.8 % (1.7-9.3); PLATELET COUNT 272 K/mm3 (130-400); RED BLOOD COUNT 4.89 M/mm3 (4.20-5.60); REDCELL DISTRIBUTION WIDTH-CV 14.7 % (11.5-14.5)
[2019-05-15 18:02] LABS: INR 1.2 (0.8-3.0); PROTHROMBIN TIME 13.5 SECONDS (9.7-12.8)
[2019-05-15 18:05] LABS: ALANINE AMINOTRANSFERASE < 6 U/L (21-72); ALBUMIN 3.9 gm/dL (3.5-5.0); ALKALINE PHOSPHATASE 139 U/L (50-136); ANION GAP 12 mmol/L (7-16); AST,SGOT 22 U/L (15-37); BILIRUBIN,TOTAL 0.2 mg/dL (0.0-1.0); BLOOD UREA NITROGEN 19 mg/dL (9-20); CALCIUM 9.7 mg/dL (8.4-10.2); CARBON DIOXIDE 28 mmol/L (22-30); CHLORIDE 104 mmol/L (98-107); CREATININE, serum 0.69 (0.66-1.25); GLUCOSE 110 mg/dL (74-106); POTASSIUM 4.2 mmol/L (3.4-5.0); SODIUM 143 mmol/L (137-145); TOTAL PROTEIN 7.8 gm/dL (6.4-8.2)
[2019-05-15 18:07] VITALS: BP 148/85; PULSE 71; TEMP 99
--- NOTE | 2019-05-15 19:28 | NUR ---
Pt arrived this afternoon, no C/O pain nor significant issues found during admission assessment. Admission assessments complete.
--- NOTE | 2019-05-15 19:33 | NUR ---
Report given to MIRTHA Diallo.
--- NOTE | 2019-05-15 19:45 | NUR ---
Pt sitting at side of bed. at bedside. No distress noted. Pt denies pain. VSS. Assessment WNL. No needs noted. Will continue to monitor.
[2019-05-15 22:18] LABS: COLLECTION METHOD CLEAN CATCH
--- NOTE | 2019-05-15 22:20 | NUR ---
UA collected per MD order. Pt denies needs. Will continue to monitor.
[2019-05-15 22:24] LABS: PH 5 (5-8); URINE APPEARANCE Cloudy; URINE BACTERIA None Seen /hpf; URINE BILIRUBIN Negative (NEGATIVE); URINE BLOOD Negative (NEGATIVE); URINE COLOR Yellow; URINE GLUCOSE Negative (NEGATIVE); URINE KETONE Negative (NEGATIVE); URINE LEUKOCYTE ESTERASE 3+ (NEGATIVE); URINE NITRATE Negative (NEGATIVE); URINE PROTEIN(semi-quant) 1+ (NEGATIVE); URINE UROBILINOGEN Negative (NEGATIVE); URINE WBC >50 /hpf
[2019-05-15 22:36] VITALS: BP 143/70; PULSE 70; TEMP 98.1
[2019-05-15 23:24] VITALS: BP 142/78; PULSE 73; TEMP 98.3
[2019-05-16 03:29] VITALS: BP 143/76; PULSE 75; TEMP 98.4
--- NOTE | 2019-05-16 06:00 | NUR ---
Pt awake and alert. at bedside. Pt just bathed. Pt denies pain or needs. Dr. Woodard called for pt update. No orders received.
[2019-05-16 07:10] LABS: BASO % 0.5 % (0.0-2.0); EOS # 0.2 (0.0-0.7); EOS % 1.7 % (0-4.0); HEMATOCRIT 43.2 % (42.0-52.0); HEMOGLOBIN 13.7 g/dl (13.5-18.0); LYMPH # 2.3 (1.2-3.4); LYMPH % 26.4 % (20.0-51.0); MEAN CELL VOLUME 90 fl (80.0-100.0); MEAN CORPUSCULAR HEMOGLOBIN 29 pg (27.0-31.0); MEAN CORPUSCULAR HGB CONC 32 g/dl (33.0-37.0); MEAN PLATELET VOLUME 9.6 fl (7.4-10.4); MONO # 1.2 (0.1-0.6); MONO % 13.8 % (1.7-9.3); PLATELET COUNT 275 K/mm3 (130-400); RED BLOOD COUNT 4.78 M/mm3 (4.20-5.60); REDCELL DISTRIBUTION WIDTH-CV 14.6 % (11.5-14.5)
[2019-05-16 07:26] LABS: CALCIUM 9.5 mg/dL (8.4-10.2); CREATININE, serum 0.77 (0.66-1.25)
[2019-05-16 07:59] VITALS: BP 130/81; PULSE 69; TEMP 98
--- NOTE | 2019-05-16 10:03 | NUR ---
Pt sitting up in recliner eating breakfast, no C/O pain at this time, shift assessments complete, left Pt call light in reach.
[2019-05-16 11:38] VITALS: BP 147/82; PULSE 71; TEMP 97.5
[2019-05-16 14:43] VITALS: BP 147/82; PULSE 71; TEMP 97.5
--- NOTE | 2019-05-16 15:30 | NUR ---
[facility] packet given to Pt.
== END 2019-05-16 15:15 | disposition short-term general hospital (02) | DRG 871 ==
LOC: MEDICAL 15:17
PROVIDERS: ADMIT Hospitalist
DX: R78.81 Bacteremia (principal); J18.9 Pneumonia, unspecified organism; I50.22 Chronic systolic (congestive) heart failure; N39.0 Urinary tract infection, site not specified; I11.0 Hypertensive heart disease with heart failure; R53.81 Other malaise; I48.91 Unspecified atrial fibrillation; Z79.01 Long term (current) use of anticoagulants; E78.5 Hyperlipidemia, unspecified; H40.9 Unspecified glaucoma; N40.0 Benign prostatic hyperplasia without lower urinary tract symptoms; M89.9 Disorder of bone, unspecified; Z88.8 Allergy status to other drugs, medicaments and biological substances; Z87.891 Personal history of nicotine dependence; E11.9 Type 2 diabetes mellitus without complications; Z79.84 Long term (current) use of oral hypoglycemic drugs; E05.90 Thyrotoxicosis, unspecified without thyrotoxic crisis or storm
CPT/HCPCS: 99222-AI; 99239; J1815; J2020

== ENCOUNTER 2019-05-27 11:34 | Emergency (ER) | payer MEDICARE ==
[~2019-05-27] VITALS: Ht 180.3 cm; Wt 111.4 kg
[2019-05-27 11:39] VITALS: TEMP 97.8
[2019-05-27 12:24] LABS: BASO % 0.4 % (0.0-2.0); EOS # 0.2 (0.0-0.7); EOS % 2.4 % (0-4.0); GRAN # 5.9 (1.4-6.5); GRAN % 65.9 % (42.2-75.2); HEMATOCRIT 39.3 % (42.0-52.0); HEMOGLOBIN 12.8 g/dl (13.5-18.0); LYMPH # 1.6 (1.2-3.4); LYMPH % 17.5 % (20.0-51.0); MEAN CELL VOLUME 88 fl (80.0-100.0); MEAN CORPUSCULAR HEMOGLOBIN 29 pg (27.0-31.0); MEAN CORPUSCULAR HGB CONC 33 g/dl (33.0-37.0); MEAN PLATELET VOLUME 10.2 fl (7.4-10.4); MONO # 1.2 (0.1-0.6); MONO % 13.4 % (1.7-9.3); PLATELET COUNT 312 K/mm3 (130-400); RED BLOOD COUNT 4.47 M/mm3 (4.20-5.60)
[2019-05-27 12:37] LABS: ALBUMIN 3.6 gm/dL (3.5-5.0); BILIRUBIN,TOTAL 0.5 mg/dL (0.0-1.0); CALCIUM 9.4 mg/dL (8.4-10.2); CREATININE, serum 0.62 (0.66-1.25); TOTAL PROTEIN 7.3 gm/dL (6.4-8.2)
[2019-05-27 13:38] LABS: COLLECTION METHOD CLEAN CATCH
[2019-05-27 13:58] LABS: MUCOUS Present /lpf; PH 7 (5-8); SQUAMOUS EPITHELIAL None Seen /hpf; URINE APPEARANCE Hazy; URINE BACTERIA None Seen /hpf; URINE BILIRUBIN Negative (NEGATIVE); URINE BLOOD 3+ (NEGATIVE); URINE COLOR Yellow; URINE GLUCOSE Negative (NEGATIVE); URINE KETONE Negative (NEGATIVE); URINE LEUKOCYTE ESTERASE Trace (NEGATIVE); URINE NITRATE Negative (NEGATIVE); URINE PROTEIN(semi-quant) 1+ (NEGATIVE); URINE RBC >50 /hpf; URINE UROBILINOGEN Negative (NEGATIVE)
[2019-05-27 14:47] VITALS: BP 141/81; PULSE 74
== END 2019-05-27 14:50 | disposition home or self-care (01) ==
LOC: COL.ER 11:34
PROVIDERS: Family Medicine
DX: L03.90 Cellulitis, unspecified (principal); Z95.0 Presence of cardiac pacemaker
CPT/HCPCS: J7030

== ENCOUNTER → 2020-04-12 | Outpatient (CLI) | payer MEDICARE | LOC: COL.RAD 13:28 | DX: Z01.818 Encounter for other preprocedural examination (principal); Z95.810 Presence of automatic (implantable) cardiac defibrillator ==

== ENCOUNTER 2022-02-01 14:52 | Observation (INO) | payer OTHER, MEDICARE ==
[~2022-02-01] VITALS: Ht 180.3 cm; Wt 110.3 kg
[~2022-02-01 14:52] MED LIST changes: +AMARYL4 MG PO; +ENTRESTO 24 MG1 EACH PO; +LASIX 80MG TABL80 MG PO; +VITAMIN B COMPL1 SGL PO
[2022-02-01 17:15] LABS: BASO % 0.4 % (0.0-2.0); EOS # 0.2 K/mm3 (0.0-0.7); EOS % 2.2 % (0.0-4.0); GRAN # 5.1 K/mm3 (1.4-6.5); GRAN % 66.6 % (42.2-75.2); HEMATOCRIT 47.5 % (42.0-52.0); HEMOGLOBIN 15.6 g/dl (13.5-18.0); LYMPH # 1.5 K/mm3 (1.2-3.4); LYMPH % 19.7 % (20.0-51.0); MEAN CELL VOLUME 98 fl (80.0-100.0); MEAN CORPUSCULAR HEMOGLOBIN 32 pg (27-31); MEAN CORPUSCULAR HGB CONC 33 g/dl (33.0-37.0); MEAN PLATELET VOLUME 10.7 fl (7.4-10.4); MONO # 0.8 K/mm3 (0.1-0.6); MONO % 10.8 % (1.7-9.3); PLATELET COUNT 176 K/mm3 (130-400); RED BLOOD COUNT 4.84 M/mm3 (4.20-5.60)
[2022-02-01 17:28] LABS: ALBUMIN 3.6 gm/dL (3.4-4.8); BILIRUBIN,TOTAL 0.4 mg/dL (0.2-1.2); CALCIUM 9.4 mg/dL (8.4-10.2); CREATININE, serum 1.21 mg/dL (0.72-1.25); POTASSIUM 4.5 mmol/L (3.5-4.5); TOTAL PROTEIN 6.9 gm/dL (6.2-8.1)
[2022-02-01 17:33] LABS: TROPONIN-I 0.019 ng/mL (0.00-0.033)
[2022-02-01] MEDS ORDERED: ENTRESTO 97 MG1 EACH PO (21:09)
[2022-02-02 00:14] VITALS: BP 139/90; PULSE 82; TEMP 97.9
--- NOTE | 2022-02-02 01:11 | NUR ---
PATIENT UP TO ROOM 317. ALERT AND ORIENTED. DENIES PAIN. BILATERAL LOWER EXTREMITIES WITH +2 EDEMA. L AC IV PATENT AND FLUSHED. FLUID RESTRICTION IN PLACE AND DISCUSSED WITH PATIENT. ACCURATE I&OS IN PLACE. HS MEDICATIONS GIVEN. MED RX AND ADMIT ASSESSMENTS COMPLETED. TELE REPORTING PACED RHYTHM. NO FURTHER NEEDS PER PATIENT. CURRENTLY RESTING IN BED. CALL LIGHT IN REACH.
[2022-02-02 04:34] VITALS: BP 118/64; PULSE 73; TEMP 97.8
[2022-02-02 08:00] VITALS: BP 144/90; PULSE 79; TEMP 98.1
--- NOTE | 2022-02-02 08:30 | NUR ---
Shift assessment complete. Pt resting in bed. A&Ox4. Up ad del in room and hallway. Continued complaints of mucus in throat but feels he coughed most up and is clear now. Denies pain or SOA. Vitals stable. 3+ pitting to BLE. Abdomen firm and distended, nontender. Denies needs at this time. Call light in reach.
[2022-02-02 12:35] VITALS: BP 141/91; PULSE 85; TEMP 98
--- NOTE | 2022-02-02 15:35 | NUR ---
SW attempted to meet with patient to complete intake. Patient in the bathroom at the time of attempt. Will try again at a later time.
[2022-02-02 16:00] VITALS: BP 144/90; PULSE 79; TEMP 97.7
--- NOTE | 2022-02-02 18:15 | NUR ---
Pt had uneventful shift. IV lasix given per orders. Resting in recliner at this time w/ at bedside.
[2022-02-02 19:53] VITALS: BP 140/85; PULSE 83; TEMP 97.5
--- NOTE | 2022-02-02 20:30 | NUR ---
Initial shift assessment done- lower ext pitting edema 2+, no SOB/denies any pain- pleasant.Alert/oriented. VSS Tele on- paced. Understands to save urine so that we can measure- getting lasix 80mg IV BID
[2022-02-03 00:25] VITALS: BP 135/84; PULSE 79; TEMP 98
[2022-02-03 04:17] VITALS: BP 133/73; PULSE 80; TEMP 98.3
--- NOTE | 2022-02-03 05:30 | NUR ---
Quiet night- Has had 1250cc of urine out this shift - did take the melatonin for sleep around MI, Tele on- -paced.
[2022-02-03 06:54] LABS: BASO % 0.4 % (0.0-2.0); EOS # 0.2 K/mm3 (0.0-0.7); EOS % 2.7 % (0.0-4.0); GRAN # 4.3 K/mm3 (1.4-6.5); GRAN % 58.1 % (42.2-75.2); HEMATOCRIT 46.7 % (42.0-52.0); HEMOGLOBIN 15.4 g/dl (13.5-18.0); LYMPH # 1.8 K/mm3 (1.2-3.4); LYMPH % 24.3 % (20.0-51.0); MEAN CELL VOLUME 97 fl (80.0-100.0); MEAN CORPUSCULAR HEMOGLOBIN 32 pg (27-31); MEAN CORPUSCULAR HGB CONC 33 g/dl (33.0-37.0); MEAN PLATELET VOLUME 11.1 fl (7.4-10.4); MONO % 14.2 % (1.7-9.3); PLATELET COUNT 170 K/mm3 (130-400); RED BLOOD COUNT 4.84 M/mm3 (4.20-5.60)
--- NOTE | 2022-02-03 08:00 | NUR ---
Shift assessment complete. Pt sitting up in recliner, A&Ox4. Vitals stable. Denies pain, SOA, chest pain or other concerns. IV lasix given per orders. 3+ pitting edema to BLE remains. Lungs CTA. Abdomen slightly firm and distended. Pt denies needs at this time. Continuing to monitor.
[2022-02-03 08:04] LABS: CREATININE, serum 1.06 mg/dL (0.72-1.25); MAGNESIUM 1.9 mg/dL (1.6-2.6); POTASSIUM 3.6 mmol/L (3.5-4.5)
[2022-02-03 08:18] VITALS: BP 139/90; PULSE 82; TEMP 98
[2022-02-03 11:00] VITALS: BP 122/80; PULSE 80; TEMP 97.6
[2022-02-03 16:15] VITALS: BP 130/74; PULSE 78; TEMP 98
[2022-02-03 19:54] VITALS: BP 130/85; PULSE 82; TEMP 97.5
[2022-02-04 01:03] VITALS: BP 122/70; PULSE 68; TEMP 97.9
[2022-02-04 04:28] VITALS: BP 98/62; PULSE 79; TEMP 97.5
--- NOTE | 2022-02-04 05:00 | NUR ---
ASSESSMENT FOR THIS SHIFT COMPLETE. PT RESTING IN BED WATCHING TV. PT DENIED PAIN, PALPITATIONS, N,V,D, SOB OR DIZZINESS. PT STAYED WITHIN HIS 1500ML FLUID RESTRICTION LIMIT AND HAD GOOD OUTPUT. PT EXPRESSED NO OTHER NEEDS AT THIS TIME. CALL LIGHT WITHIN REACH.
[2022-02-04 06:02] LABS: BASO % 0.5 % (0.0-2.0); EOS # 0.3 K/mm3 (0.0-0.7); EOS % 3.7 % (0.0-4.0); GRAN # 4.9 K/mm3 (1.4-6.5); GRAN % 58.4 % (42.2-75.2); HEMOGLOBIN 17.1 g/dl (13.5-18.0); LYMPH % 24.3 % (20.0-51.0); MEAN CELL VOLUME 99 fl (80.0-100.0); MEAN CORPUSCULAR HEMOGLOBIN 32 pg (27-31); MEAN CORPUSCULAR HGB CONC 32 g/dl (33.0-37.0); MEAN PLATELET VOLUME 10.6 fl (7.4-10.4); MONO # 1.1 K/mm3 (0.1-0.6); MONO % 12.9 % (1.7-9.3); PLATELET COUNT 195 K/mm3 (130-400); RED BLOOD COUNT 5.37 M/mm3 (4.20-5.60); REDCELL DISTRIBUTION WIDTH-CV 13.9 % (11.5-14.5)
[2022-02-04 06:16] LABS: ALBUMIN 3.7 gm/dL (3.4-4.8); CALCIUM 9.5 mg/dL (8.4-10.2); CREATININE, serum 1.52 mg/dL (0.72-1.25); MAGNESIUM 1.9 mg/dL (1.6-2.6); PHOSPHOROUS 4.8 mg/dL (2.3-4.7); POTASSIUM 3.6 mmol/L (3.5-4.5)
[2022-02-04 06:32] LABS: HEMATOCRIT 52.9 % (42.0-52.0)
[2022-02-04 08:48] VITALS: BP 137/69; PULSE 56; TEMP 97.6
--- NOTE | 2022-02-04 09:59 | NUR ---
PT WALKING AROUND ROOM. MORNING MEDICATIONS GIVEN. SHIFT ASSESSMENT COMPLETED. PT DENIES ANY PAIN. PT BELIEVES SWELLING TO BLE HAS IMPROVED, IS EAGER TO D/C HOME. UPDATED PT ON POC. WILL CONTINUE TO MONITOR.
--- NOTE | 2022-02-04 11:31 | NUR ---
liner worker met with patient to discuss discharge plan. Patient currently lives at home with his long time partner Carlos. Patient is independent with his ADL's and utilizes a cane to assist with ambulation. Patient has no oxygen needs at home. PCP is Dr. Michel Castillo at the [facility] and [facility]. Patient reports that he does have a DPOA-HC estbalished and that Carlos has a copy of it. Collaborated with the patient's RN and physician, each of which have no concerns with the patient returning home today. Discharge plan: Home with life partner.
[2022-02-04 11:48] VITALS: BP 108/83; PULSE 80; TEMP 97.7
[2022-02-04] MEDS ORDERED: ALDACTONE 25MG25 M1 PO (16:02)
--- NOTE | 2022-02-04 16:45 | NUR ---
DISCHARGE INSTRUCTIONS GIVEN, ALL QUESTIONS ANSWERED. IV D/C. PT ESCORTED DOWN TO CAR. WILL D/C FROM SYSTEM.
== END 2022-02-04 16:46 | disposition home or self-care (01) ==
LOC: COL.ER 14:52 → MEDICAL 18:35
PROVIDERS: Internal Medicine; Nurse Practitioner; Physician Assistant; ADMIT Internal Medicine
DX: I11.0 Hypertensive heart disease with heart failure (principal); I50.23 Acute on chronic systolic (congestive) heart failure; I42.8 Other cardiomyopathies; I48.0 Paroxysmal atrial fibrillation; N17.9 Acute kidney failure, unspecified; I27.20 Pulmonary hypertension, unspecified; E11.9 Type 2 diabetes mellitus without complications; E78.5 Hyperlipidemia, unspecified; N40.0 Benign prostatic hyperplasia without lower urinary tract symptoms; H40.9 Unspecified glaucoma; Z79.84 Long term (current) use of oral hypoglycemic drugs; Z79.01 Long term (current) use of anticoagulants; Z79.899 Other long term (current) drug therapy; Z87.891 Personal history of nicotine dependence; Z95.810 Presence of automatic (implantable) cardiac defibrillator
CPT/HCPCS: 99223-AI; 99233-AI; 99239; G0378; J1815; J1940

== ENCOUNTER 2023-01-06 18:13 | Observation (INO) | payer OTHER, MEDICARE ==
[~2023-01-06] VITALS: Ht 177.8 cm; Wt 108.3 kg
[~2023-01-06 18:13] MED LIST changes: +ALDACTONE 25MG25 M1 PO; +ENTRESTO 97 MG1 EACH PO
[2023-01-06 19:14] LABS: BASO % 0.2 % (0.0-2.0); EOS # 0.1 K/mm3 (0.0-0.7); EOS % 1.4 % (0.0-4.0); GRAN # 6.3 K/mm3 (1.4-6.5); GRAN % 72.8 % (42.2-75.2); HEMATOCRIT 50.1 % (42.0-52.0); HEMOGLOBIN 16.2 g/dl (13.5-18.0); LYMPH # 1.5 K/mm3 (1.2-3.4); LYMPH % 17.6 % (20.0-51.0); MEAN CELL VOLUME 102 fl (80.0-100.0); MEAN CORPUSCULAR HEMOGLOBIN 33 pg (27-31); MEAN CORPUSCULAR HGB CONC 32 g/dl (33.0-37.0); MEAN PLATELET VOLUME 11.3 fl (7.4-10.4); MONO # 0.7 K/mm3 (0.1-0.6); MONO % 7.8 % (1.7-9.3); PLATELET COUNT 265 K/mm3 (130-400); REDCELL DISTRIBUTION WIDTH-CV 13.5 % (11.5-14.5)
[2023-01-06 20:16] LABS: ALBUMIN 3.6 gm/dL (3.4-4.8); BILIRUBIN,TOTAL 0.3 mg/dL (0.2-1.2); CALCIUM 9.5 mg/dL (8.4-10.2); CREATININE, serum 1.1 mg/dL (0.72-1.25); POTASSIUM 4.6 mmol/L (3.5-4.5); TOTAL PROTEIN 7.2 gm/dL (6.2-8.1)
[2023-01-06 20:21] LABS: TROPONIN-I 0.014 ng/mL (0.00-0.033)
[2023-01-06 22:16] VITALS: BP 133/87; PULSE 81; TEMP 97.6
[2023-01-06 23:53] VITALS: BP 125/76; PULSE 80; TEMP 97.6
[2023-01-07] VITALS (7 sets, daily range): BP systolic 111–135; BP diastolic 50–86; PULSE 71–97; TEMP 97.1–98.8
[2023-01-07 06:42] LABS: BASO % 0.4 % (0.0-2.0); EOS # 0.2 K/mm3 (0.0-0.7); EOS % 2.2 % (0.0-4.0); GRAN # 5.2 K/mm3 (1.4-6.5); HEMATOCRIT 48.3 % (42.0-52.0); HEMOGLOBIN 15.4 g/dl (13.5-18.0); LYMPH # 1.8 K/mm3 (1.2-3.4); LYMPH % 21.5 % (20.0-51.0); MEAN CELL VOLUME 103 fl (80.0-100.0); MEAN CORPUSCULAR HEMOGLOBIN 33 pg (27-31); MEAN CORPUSCULAR HGB CONC 32 g/dl (33.0-37.0); MEAN PLATELET VOLUME 10.8 fl (7.4-10.4); MONO % 11.7 % (1.7-9.3); PLATELET COUNT 226 K/mm3 (130-400); RED BLOOD COUNT 4.71 M/mm3 (4.20-5.60); REDCELL DISTRIBUTION WIDTH-CV 13.3 % (11.5-14.5)
[2023-01-07 06:55] LABS: CALCIUM 9.4 mg/dL (8.4-10.2); CREATININE, serum 1.08 mg/dL (0.72-1.25); MAGNESIUM 1.9 mg/dL (1.6-2.6); POTASSIUM 4.2 mmol/L (3.5-4.5)
--- NOTE | 2023-01-07 07:08 | NUR ---
Reported by lab that pt BG is 60. No hypoglycemic orders in place yet. 1 dose of oral gel glucose provided. Will monitor glucose per protocol.
--- NOTE | 2023-01-07 07:21 | NUR ---
VOICEMAIL MESSAGE LEFT FOR DR MARCELO REGARDING CONSULT
--- NOTE | 2023-01-07 07:58 | NUR ---
BG WNL. patient alert and oriented, no complains. Awaiting breakfast.
--- NOTE | 2023-01-07 08:00 | NUR ---
Patient is on the side of the bed, alert and oriented x 4, denies any pain, SOB at this time. Assessment completed. COntinue monitoring.
--- NOTE | 2023-01-07 09:33 | NUR ---
Instrument Maker Apprentice met with patient to discuss discharge planning. Patient lives in [place] with his life partner, Carlos (#[phone]) and advised they are not currently as they did not want to affect Carlos's benefits. Patient advised Carlos is patient's DPOA-HC and that everything he has will go to her once he passes. Patient goes to the [facility] for primary care and obtains medications from the [facility]. Patient also uses [facility] for medications as needed. Patient has a cane that he only uses when he is out in the community or here in the hospital. Patient also has a walker but advised he normally does not use any assistive devices for walking. Patient stated he is "independent as hell" and plans to return home at time of discharge. Discharge Plan: Home
--- NOTE | 2023-01-07 10:59 | NUR ---
Initial visit; Patient has fun just talking. Patient is not interested in talking about himself. Clinical Education Specialist had a lite conversation with Haja and offered him God's blessings. He thanked Clinical Education Specialist.
--- NOTE | 2023-01-07 19:14 | NUR ---
Patient with at the bedside. Getting all his med per orders and following the 1500 fluid restriction. Report given to night RN.
[2023-01-08 05:16] VITALS: BP 118/78; PULSE 81; TEMP 97.4
[2023-01-08 07:00] VITALS: BP 126/66; PULSE 81; TEMP 97.1
[2023-01-08 08:57] LABS: BASO # 0.1 K/mm3 (0.0-0.2); BASO % 0.7 % (0.0-2.0); EOS # 0.2 K/mm3 (0.0-0.7); EOS % 2.7 % (0.0-4.0); GRAN # 4.4 K/mm3 (1.4-6.5); GRAN % 62.9 % (42.2-75.2); HEMOGLOBIN 17.3 g/dl (13.5-18.0); LYMPH # 1.5 K/mm3 (1.2-3.4); LYMPH % 20.7 % (20.0-51.0); MEAN CELL VOLUME 99 fl (80.0-100.0); MEAN CORPUSCULAR HEMOGLOBIN 33 pg (27-31); MEAN CORPUSCULAR HGB CONC 33 g/dl (33.0-37.0); MEAN PLATELET VOLUME 10.6 fl (7.4-10.4); MONO # 0.9 K/mm3 (0.1-0.6); MONO % 12.7 % (1.7-9.3); PLATELET COUNT 243 K/mm3 (130-400); RED BLOOD COUNT 5.31 M/mm3 (4.20-5.60); REDCELL DISTRIBUTION WIDTH-CV 13.1 % (11.5-14.5)
[2023-01-08 08:58] LABS: HEMATOCRIT 52.5 % (42.0-52.0)
[2023-01-08 09:17] LABS: CALCIUM 9.6 mg/dL (8.4-10.2); CREATININE, serum 1.25 mg/dL (0.72-1.25); MAGNESIUM 1.9 mg/dL (1.6-2.6); POTASSIUM 4.2 mmol/L (3.5-4.5)
--- NOTE | 2023-01-08 09:47 | NUR ---
Agree with students assessment of the patient. A&Ox4. VSS. IV CDI. Denies pain and discomfort. at the bedside assisting with cares. Call light within reach
--- NOTE | 2023-01-08 09:52 | NUR ---
Reviewed education for chronic heart failure. Reviewed [facility] "CHF Zones" handout, with emphasis on daily weights, obtaining dry weights, monitoring for edema, shortness of breath, decreased endurance, or feeling full when eating less. Reviewed importance of medication compliance with all prescribed medications and when to call your medical provider. Patient verbalized understanding. Patient s EF is 15-20% which does qualify for Cardiac Rehab. Patient states that he is already exercising 30+ min daily and feels he is "doing the right things". Staff encouraged continuation and asking Head Grinder or mid -level about his questions regarding his "device changes" . Patient verbalized understanding.
[2023-01-08 11:00] VITALS: BP 101/61; PULSE 82; TEMP 98.1
--- NOTE | 2023-01-08 13:23 | NUR ---
Discharge paperwork reviewed with the patient and . Patient verbalized an understanding to follow doctors orders. IV removed, tip intact. Call light within reach. Patient was able to dress himself
--- NOTE | 2023-01-08 14:00 | NUR ---
Patient transfered by wheelchair to awaiting vehicle. Discharge paperwork and personal belongings with the patient. No further needs expressed
== END 2023-01-08 14:00 | disposition home or self-care (01) ==
LOC: COL.ER 18:13 → MEDICAL 20:42 → COL.ER 20:42 → MEDICAL 20:42
PROVIDERS: Emergency Medicine; Physician Assistant; Student in an Organized Health Care Education/Training Program; ADMIT Internal Medicine
DX: I11.0 Hypertensive heart disease with heart failure (principal); I50.21 Acute systolic (congestive) heart failure; I42.8 Other cardiomyopathies; E78.5 Hyperlipidemia, unspecified; I48.0 Paroxysmal atrial fibrillation; E11.9 Type 2 diabetes mellitus without complications; N40.0 Benign prostatic hyperplasia without lower urinary tract symptoms; H40.9 Unspecified glaucoma; I08.1 Rheumatic disorders of both mitral and tricuspid valves; Z87.891 Personal history of nicotine dependence; Z95.810 Presence of automatic (implantable) cardiac defibrillator; Z79.01 Long term (current) use of anticoagulants; Z79.84 Long term (current) use of oral hypoglycemic drugs; Z79.899 Other long term (current) drug therapy
CPT/HCPCS: G0378; J1940; J3475

== ENCOUNTER 2023-01-17 10:51 | Emergency (ER) | payer OTHER, MEDICARE ==
[~2023-01-17] VITALS: Ht 180.3 cm; Wt 100.0 kg
[2023-01-17 10:56] VITALS: TEMP 98
[2023-01-17 11:59] LABS: BASO % 0.4 % (0.0-2.0); EOS # 0.2 K/mm3 (0.0-0.7); EOS % 1.8 % (0.0-4.0); GRAN # 5.4 K/mm3 (1.4-6.5); GRAN % 65.7 % (42.2-75.2); HEMATOCRIT 51.6 % (42.0-52.0); HEMOGLOBIN 16.1 g/dl (13.5-18.0); LYMPH # 1.7 K/mm3 (1.2-3.4); LYMPH % 20.3 % (20.0-51.0); MEAN CELL VOLUME 104 fl (80.0-100.0); MEAN CORPUSCULAR HEMOGLOBIN 32 pg (27-31); MEAN CORPUSCULAR HGB CONC 31 g/dl (33.0-37.0); MEAN PLATELET VOLUME 10.9 fl (7.4-10.4); MONO % 11.6 % (1.7-9.3); PLATELET COUNT 189 K/mm3 (130-400); RED BLOOD COUNT 4.97 M/mm3 (4.20-5.60); REDCELL DISTRIBUTION WIDTH-CV 13.2 % (11.5-14.5)
[2023-01-17 12:13] LABS: ALBUMIN 3.6 gm/dL (3.4-4.8); BILIRUBIN,TOTAL 0.3 mg/dL (0.2-1.2); CALCIUM 9.5 mg/dL (8.4-10.2); CREATININE, serum 1.11 mg/dL (0.72-1.25); POTASSIUM 4.6 mmol/L (3.5-4.5); TOTAL PROTEIN 7.5 gm/dL (6.2-8.1)
[2023-01-17 12:19] LABS: TROPONIN-I 0.011 ng/mL (0.00-0.033)
[2023-01-17] MEDS ORDERED: ALDACTONE 25MG25 M1 PO ×2 (13:19→13:28)
[2023-01-17 13:40] VITALS: BP 133/97; PULSE 73
== END 2023-01-17 13:40 | disposition home or self-care (01) ==
LOC: COL.ER 10:51
PROVIDERS: Nurse Practitioner Family
DX: I11.0 Hypertensive heart disease with heart failure (principal); I50.9 Heart failure, unspecified; I43 Cardiomyopathy in diseases classified elsewhere; J01.90 Acute sinusitis, unspecified; G47.00 Insomnia, unspecified; R06.01 Orthopnea; Z87.891 Personal history of nicotine dependence; Z79.899 Other long term (current) drug therapy
CPT/HCPCS: J1940

== ENCOUNTER 2023-09-08 11:46 | Emergency (ER) | payer MEDICARE ==
[~2023-09-08] VITALS: Ht 180.3 cm; Wt 97.7 kg
[~2023-09-08 11:46] MED LIST changes: +DESYREL 50MG50 MG PO; +K-TAB20 PO
[2023-09-08 12:07] VITALS: TEMP 98.6
[2023-09-08] MEDS ORDERED: DESYREL 100MG100 MG PO (13:38)
[2023-09-08 14:16] VITALS: BP 118/92; PULSE 82
== END 2023-09-08 14:10 | disposition home or self-care (01) ==
LOC: COL.ER 11:46
DX: G47.00 Insomnia, unspecified (principal)